=== PATIENT | female | born 1940 | race Caucasian/White ===

== ENCOUNTER → 2017-01-02 | Outpatient (CLI) | payer OTHER ==
[~2017-01-02] MED LIST: ASPIRIN81 MG PO; BIOTIN PO; CALTRATE PLUS T1 TAB PO; FISH OIL 1,0001 CAP PO; FISH OIL 10001000 MG PO; FOSAMAX PO; IBUPROFEN800 MG PO; MULTI-VIT/MIN P1 TAB PO; PHENERGAN VC W120 M1 PO; PROBIOTIC1 EAC1 PO; ZITHROMAX PO; ZOCOR5 MG PO
--- NOTE | ~2017-01-02 | MY29 ---
[facility] A Service of [facility] RADIOLOGY TEXT RESULTS PATIENT: FABIAN LOCKE LOCATION: [facility] : 40 UNIT #: [id number] AGE: [address]: Kiley Villatoro APRN SEX: F ORDER DR: [id number] [facility] [address] [place], [place] [address] [id number] O MR#: [id number] Acc #: [id number] NAME: FABIAN LOCKE : 1940 SEX: F STUDY DATE/TIME: 01/02/2017 13:45 UNIT: [facility] ROOM: STUDY DESCRIPTION: [facility] SCREENING W/ CAD BILAT Attending Physician: Kiley Villatoro A.P.R.N. Referring Physician: Kiley Villatoro A.P.R.N. Ordering Physician: Kiley Villatoro A.P.R.N. Primary Care Physician: Kathleen Clifton M.D. MEDICAL IMAGING REPORT This report is preliminary unless electronic signature is present EXAM Digital screening mammogram, 01/02/2017; [facility]. HISTORY 76-year-old woman positive family history, sister age 40, aunt age ? Previous benign right breast biopsy. Annual screen. COMPARISON Comparison mammograms date to 05/31/2007 with most recent comparison 11/23/2015. TECHNIQUE Digital imaging of each breast was completed utilizing screening protocol. Review includes FDA-approved CAD device. FINDINGS Breast parenchyma remains dense with a generalized small fibronodular pattern. Mild dominance in the left breast appears stable. I see no suspicious breast mass. There are no interval occurring microcalcifications, and no focal architectural distortion. IMPRESSION Stable benign mammogram. Dense breast parenchyma. Annual screening recommended. Patients over the age of 40 are entered into a reminder system with target due date for the next mammogram. A result letter will also be sent to the patient. BIRADS: 2 Benign findings. Dictated by... [facility] A Service [facility] RADIOLOGY TEXT RESULTS PATIENT: FABIAN LOCKE LOCATION: [facility] #: [id number] : 40 UNIT #: [id number] AGE: [address]: Kiley Villatoro APRN SEX: F ORDER DR: Nico Farris M.D. THIS IS AN ELECTRONICALLY VERIFIED REPORT Nico Farris M.D. at 01/03/2017 8:02 AM IKER/terry TD: 01/02/2017 20:23 JOB #: [id number] MEDICAL IMAGING REPORT Page 1 of 1 COPY
--- NOTE | ~2017-01-02 | US49 ---
[facility] A Service of [facility] RADIOLOGY TEXT RESULTS PATIENT: FABIAN LOCKE LOCATION: [facility] : 40 UNIT #: [id number] AGE: [address]: Kiley Villatoro APRN SEX: F ORDER DR: [id number] [facility] [address] [place], [place] [address] [id number] O MR#: [id number] Acc #: [id number] NAME: FABIAN LOCKE : 1940 SEX: F STUDY DATE/TIME: 01/02/2017 12:55 UNIT: [facility] ROOM: STUDY DESCRIPTION: US Extremity Non Vasc Complete Attending Physician: Kiley Villatoro A.P.R.N. Referring Physician: Kiley Villatoro A.P.R.N. Ordering Physician: Kiley Villatoro A.P.R.N. Primary Care Physician: Kathleen Clifton M.D. MEDICAL IMAGING REPORT This report is preliminary unless electronic signature is present EXAM Soft tissue ultrasound, 01/02/2017 HISTORY Palpable lump left chest wall near clavicle for 4 weeks, painful to touch. FINDINGS Ultrasound of the site of palpated abnormality, upper left chest wall near the clavicle, revealed 1.2 cm x 7 mm x 6 mm echogenic, circumscribed nodule characteristic of a lipoma. No suspicious mass is seen. IMPRESSION Findings characteristic of a 1.2-cm lipoma at the site of palpated abnormality left chest wall. Dictated by... Deric Schultz M.D. THIS IS AN ELECTRONICALLY VERIFIED REPORT Deric Schultz M.D. at 01/03/2017 2:37 PM KRT/brandyn TD: 01/02/2017 22:57 JOB #: [id number] MEDICAL IMAGING REPORT Page 1 of 1 COPY
== END | disposition home or self-care (01) ==
LOC: CGUS 12:22
DX: Z12.31 Encounter for screening mammogram for malignant neoplasm of breast (principal); R22.2 Localized swelling, mass and lump, trunk; D17.1 Benign lipomatous neoplasm of skin and subcutaneous tissue of trunk; Z91.89 Other specified personal risk factors, not elsewhere classified; Z80.3 Family history of malignant neoplasm of breast
CPT/HCPCS: 76881; G0202